=== PATIENT | female | born 2000 | race Caucasian/White ===

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

== ENCOUNTER 2023-01-08 15:30 | Outpatient (RCR) | payer OTHER, SELFPAY ==
--- NOTE | 2022-11-29 08:00 | HP.PTEVAL ---
Patient's Visit Information ELIAS MCDONALD is a 21 year old F referred to Physical Therapy by Dr. Rashi Steward MD with a diagnosis of L chrondromalicia of patella. Date of Evaluation: 11/29/22 Physical Therapist: Donny Keene, PT, ATC - Visit Plan Frequency: 2x /Week Duration: 4 Weeks Plan: L knee stretching and strengthening, core stab exercises, bike, and HEP - Subjective Pt reports chronic L knee pain for several years. Pt notes she has had xrays and an MRI recently which revealed degenerative changes to the fat pad under her L patella. Pt reports she has severe pain when trying to squat. Pt also notes pain with walking and with stair negotiation. Pt reports she has stairs at home that she negotiates daily and has to ascend/descend one step at a time. Pt reports L knee with lock up on her and give out on her on occasion. No L LE tingling or numbness at this time. Pt reports sleep difficulty at this time secondary to pain. Pt denies any surgical Hx of L knee. Pt does note she had surgery on her L ankle in high school, and believes that is how her L knee pain may have started. 7/10 pain at rest, 10/10 pain at worst - Pain L knee pain Pain Intensity (Out of 10): 7 Pain Intensity Range: 10 - Objective Neuro: B LE sensation is WNL to light touch. B achilles reflex= 2/3. Palpation: Pt is very sore throughout L knee. Obvious Bakers cyst in posterior L knee. Mild crepitus with AROM. ROM: R knee 0- 120; L knee 0-5-105 degrees. MMT: R knee flex= 39, ext= 47 #F; L knee flex= 12, ext= 21 #F. Special testing: Pos 90/90 test (45 degree lag), pos IT band tightness, pos apley compression, Pos McMurrays test - Balance/Special Test Scores Lower Extremity Functional Score: 32 - Goals Goal 1:: Decrease L knee pain x 50% to aid with sleep Goal Time Frame: 4-6 Weeks Goal 2:: Increase L knee strength x 5-10 #F to aid with stair negotiation Goal Time Frame: 4-6 Weeks Goal 3:: Increase L knee ROM x 20 degrees to aid with squatting activity Goal Time Frame: 4-6 Weeks Goal 4:: I with HEP Goal Time Frame: 4-6 Weeks - Rehabilitation Potential Physical Therapy Diagnosis: Pt has L knee pain, weakness, and limited ROM secondary to chondromalacia of L patella Rehabilitation Potential: Good - Anticipated Interventions Patient/Client Instruction: Educate patient on: Condition, Plan of Care For the Purpose of:: To improve self management Therapeutic Exercise to Include: Strength training, Endurance training, Flexibilty training, Dynamic Lumbar Stabilization For the Purpose of:: To decrease pain, To increase ROM, To improve muscle performance and motor function Cryotherapy (ice pack, ice massage): Yes For the Purpose of:: To decrease pain Thank you for the opportunity to evaluate your patient. For Medicare and Medicare HMO plans, please review the plan of care and approve it. It will need to be FAXED BACK to us at [phone] for Medicare purposes. For Medicare only, by signing this I certify the plan of care. Please let me know if there are questions or concerns regarding this plan of care. Physician Signature: Date:
--- NOTE | 2023-01-08 16:04 | HP.PTREVAL ---
Dr. Rashi Steward MD, It has been my pleasure to treat ELIAS MCDONALD over the last 7 visits for L chrondromalicia of patella. Please see the progress note below for an update on the physical therapy plan of care! Subjective: I dont have any pain today Objective/Function: L knee pain ranges from 0-8/10. L knee MMT: flex= 40, ext= 29 #F. L knee ROM: 0-5-125 degrees Plan Plan: Recheck or discharge in one month Balance/Gait/Functional tests - Balance/Special Test Scores Lower Extremity Functional Score: 64 Goals Goal 1:: Decrease L knee pain x 50% to aid with sleep Goal Time Frame: 4-6 Weeks Goal Progress: Progressing Goal 2:: Increase L knee strength x 5-10 #F to aid with stair negotiation Goal Time Frame: 4-6 Weeks Goal Progress: Progressing Goal 3:: Increase L knee ROM x 20 degrees to aid with squatting activity Goal Time Frame: 4-6 Weeks Goal Progress: Progressing Goal 4:: I with HEP Goal Time Frame: 4-6 Weeks Goal Progress: Progressing Anticipated Interventions Patient/Client Instruction: Educate patient on: Condition, Plan of Care For the Purpose of:: To improve self management Therapeutic Exercise to Include: Strength training, Endurance training, Flexibilty training, Dynamic Lumbar Stabilization For the Purpose of:: To decrease pain, To increase ROM, To improve muscle performance and motor function Cryotherapy (ice pack, ice massage): Yes For the Purpose of:: To decrease pain Please do not hesitate to contact me at [phone] by phone or if you have questions or concerns regarding this new plan of care! Sincerely, Donny Keene, PT, ATC
--- NOTE | 2023-03-19 08:46 | HP.PT.NRP ---
Patient Information Patient Information: ELIAS MCDONALD was seen in my office for initial evaluation on 11/29/22. The following Plan of Care was established for this patient: POC Established Initial Frequency: 2x /Week Initial Duration: 4 Weeks Anticipated Interventions Patient/Client Instruction: Educate patient on: Condition and Plan of Care For the Purpose of:: To improve self management Therapeutic Exercise to Include: Strength training, Endurance training, Flexibilty training and Dynamic Lumbar Stabilization For the Purpose of:: To decrease pain, To increase ROM and To improve muscle performance and motor function Cryotherapy (ice pack, ice massage): Yes For the Purpose of:: To decrease pain Last Seen Last Seen: This patient was last seen in our office . Pertinent comments regarding their Physical therapy will appear below: Pt was treated for 7 PT visits for L knee pain through the date of 01/08/23. Pt has not returned through todays date and is discontinued at this time. At this point I will be discontinuing this patient from physical therapy. I would be happy to see this patient again in the future if found appropriate by the physician. Thank you! Donny Keene, PT, ATC Balance/Gait/Functional tests Balance/Special Test Scores Lower Extremity Functional Score: 64
== END 2023-01-08 19:00 | disposition home or self-care (01) ==
LOC: PT 15:30
PROVIDERS: PCP Family Medicine; Referring Provider Internal Medicine Gastroenterology; Visit Provider Internal Medicine Gastroenterology
DX: M22.42 Chondromalacia patellae, left knee (principal)
CPT/HCPCS: 97110; 97161; 97164

== ENCOUNTER 2023-12-17 11:04 | Day surgery (SDC) | payer OTHER, SELFPAY ==
[2023-12-17] VITALS (9 sets, daily range): BP systolic 84–129; BP diastolic 50–80; PULSE 69–106; RESP 16–18; TEMP 36.1–36.8; O2SAT 84–100; BMI 44.7
[2023-12-17] MEDS: Lactated Ringers 1,000 ML 15 ML IV (11:53)
[2023-12-17 12:03] LABS: Internal QC Validated? YES +Cl - CLEAR BKGD; Pregnancy, Serum, hCG Quali. NEGATIVE Negative
--- NOTE | 2023-12-17 12:09 | HP.PCM_ITS ---
HPI - General HPI Narrative ELIAS MCDONALD, is a 22 F who presents for left knee arthroscopy, debridement infrapatellar fat pad. no changes to h and p. left knee marked. rab post op protocol and narcotic counselling. ok to proceed. MR#: [id number] Acct: [id number] Name: ELIAS MCDONALD Rep #: [id number] : 2000 Provider: Dr. Rai Adorno MD Age/Sex: 22/F Location: [facility] [place] Status: Signed Intake Vital Signs 10/27/1907:30 12/01/2409:10 Height 5 ft 5 in 5 ft 3 in Weight: 241 lb 6 oz BMI 42.7 Intake Visit Reasons: LEFT KNEE Accompanied by: Mother Is patient in pain?: Yes Pain scale (1-10): 5 Allergies No Known Allergies Allergy (Verified 12/02/23 10:11) Medications NK 12/02/23 [History] PFSH Medical History (Updated 12/02/23 @ 10:37 by Rai Adorno MD) Impingement syndrome involving patellar fat pad of left knee Left knee pain Other spontaneous disruption of capsular ligament of left knee Retained bilateral myringotomy tubes Surgical History (Updated 12/02/23 @ 10:18 by Camille Huynh MA) History of ankle surgery History of arthroplasty of right shoulder History of tonsillectomy and adenoidectomy Hx of cholecystectomy Family History (Updated 12/02/23 @ 10:19 by Camille Huynh MA) Grandmother Cancer Maternal Heart disease Great grandfather- MaternalGrandfather Heart disease Social History (Updated 12/02/23 @ 10:19 by Camille Huynh MA) household members: family Smoking Status: Never smoker alcohol intake: never HPI LEFT KNEE Details: This documentation accurately reflects the service provided and the decisions made by me, Dr. Rai Adorno MD 12/02/23 1007. Part of today?s visit was documented by [ ], acting as scribe. ELIAS MCDONALD is a 22 year old F here today for left knee pain, slipped on a patch of ice 1.5 years ago, had an ankle fracture and surgery, knee been 'in and out' getting worse, no patellar dislocation, worse with going up stairs, grinding, knee locks up. 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 had a cortisone injection without relief and a brace and PT> Ortho Exam General General: Yes no acute distress Neurologic: Yes alert and Yes oriented x3 Psychologic: Yes reasonable and appropriate Right Knee Patella Translation: 2 Left Knee Skin/Wound: Yes CDI, No ecchymosis, No erythema and No swelling Examination: No med jt line tenderness, No Lat jt line tenderness, Yes TTP inf pole patella, Yes Crepitus, No Pain with flexion, No Jeffrey's Test, Yes TTP Patellar tendon, No TTP Tibial tubercle, No TTP Pes Anserine and No Illiotibial band tenderness Quad Atrophy: No Stability: NML: Anterior Drawer, NML: Katherin, NML: Posterior Drawer, NML: Valgus 0, NML: Valgus 30, NML: Varus 0 and NML: Varus 30 Apprehension with Lateral Translation: No Patella Translation: 2 Patellar Tilt Normal: Yes Patella Grind: Yes KNEE: nvi, normal gait, BMI 42. rom 0-120. no effusion. pain to palpate and pressure at patellar tendon, neg j sign, no instability. Supplemental Info MRI reviewed from 09/05/2022. This is from [facility]. I agree with radiologist assessment. The conclusion is 1. There is edema in Hoffa's fat pad. 2. Partial tear of the attachment of the medial head of the gastrocnemius of the femur. no ligamentous meniscus or cartilage damage. In addition in the body of the report did state there is a tear of the posterior capsule. xr 4 views L knee - nil acute, joint spaces maintained. 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 Patient has exhausted nonoperative management including injections therapy and bracing. This they also have a partial tear of the attachment of the gastrocnemius of the femur and a small Haddad's cyst these are typically treated nonoperatively but for the fat pad impingement syndrome could consider doing a knee arthroscopy debridement of the Hoffa fat pad as well as considering concomitant denervation using electrocautery at the inferior pole of the patella during the same operation. This may help for the anterior knee pain would be unlikely to help with a posteriorly based knee pain but may offer the patient some relief. Discussed the pros and cons risks and benefits of this. Patient understands does want to go ahead with the surgery would be likely 2 weeks on crutches and 6 weeks before making a full recovery. They understand wish to proceed signed the consent form for surgery in the form of left knee arthroscopy, debridement infrapatellar fat pad. Despite not being on oral contraceptive pills and a non- smoker would still the likely plan to put the patient on postoperative VTE prophylaxis in the form of aspirin 81 mg twice daily d/t bmi (which also increases surgical risk and difficulty). Pros and cons risks and benefits were discussed with the patient including but not limited to infection, pain, stiffness, bleeding, damage to surrounding structures, neurovascular injury, recurrence or retear, failure or wear of hardware or fixation, instability, fracture, deep vein thrombosis and pulmonary embolism, anesthetic risks, , patient dissatisfaction, need for further surgery and other risks. Patient understood and wished to proceed with surgery, and signed the informed consent documentation. 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 Injury of head and neck Left knee pain Non-smoker Other spontaneous disruption of capsular ligament of left knee Retained bilateral myringotomy tubes Wears contact lenses Wears glasses Home Medications albuterol sulfate 90 mcg/actuation breath activated powder inhaler 1 inh inhalation Q6H SPORTS R/T ASTHMA 12/08/23 [History Last Taken Unknown] Allergy/AdvReac Type Severity Reaction Status Date / Time No Known Allergies Allergy Verified 12/17/23 11:27 Family History (Updated 12/02/23 @ 10:19 by Camille Huynh MA) Grandmother Cancer Maternal Heart disease Great grandfather- Maternal Grandfather Heart disease Surgical History (Updated 12/02/23 @ 10:18 by Camille Huynh MA) History of ankle surgery History of arthroplasty of right shoulder History of tonsillectomy and adenoidectomy Hx of cholecystectomy Social History (Updated 12/02/23 @ 10:19 by Camille Huynh MA) household members: family Smoking Status: Never smoker alcohol intake: never Vital Signs Vital Signs Vital Signs: 12/17/23 11:28 12/17/23 11:28 Temperature 98.2 F Temperature Source Temporal Pulse Rate 69 Respiratory Rate 16 Respiratory Pattern Normal Blood Pressure 129/80 H Blood Pressure Mean 96 Blood Pressure Source Monitor Blood Pressure Position Semi-Fowlers Blood Pressure Location Left Arm Pulse Ox 100 Oxygen Delivery Method Room Air Weight Weight: 244 lb 11.41 oz Body Mass Index (BMI) 44.7 Results Lab / Micro Data Labs: Laboratory Results - last 24 hr 12/17/23 11:40: Serum , Qual NEGATIVE
[2023-12-17] MEDS: Cefazolin 2 GM in 0.9% Normal Saline (100mL Bag) 100 ML IV (12:37)
[2023-12-17] MEDS: Epinephrine (1 mg/ml) 1 MG/ML VIAL (13:00)
[2023-12-17] MEDS: Bupivacaine 0.25% 30 ML Vial (13:20)
--- NOTE | 2023-12-17 13:32 | PCM.OPRPT ---
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 Placed supine on the table. 2 g IV Ancef administered prior to the start of the procedure. General anesthesia induced. All bony prominences padded. SCD on the nonoperative leg. Left thigh appropriately padded tourniquet applied. Stress positioner to the patient's left side. Lower extremity prepped and draped in the usual sterile fashion allowing over 3 minutes drying time prior to draping. Preoperative timeout performed confirm the site patient the surgery. Began by elevating the limb inflated the tourniquet to 250 mmHg. Made standard anterolateral and anteromedial arthroscopy portals. Did a full diagnostic arthroscopy. Some mild grade 1 fraying undersurface of the patella gently debrided this. Medial lateral gutters entered no loose bodies appeared normal. Trochlear cartilage as well as cartilage on the rest the patella was normal. Patella was centered. Medial lateral compartments were normal normal medial and lateral meniscus as well as the cartilage in both compartments were normal. I debrided and remove the ligamentum mucosum. ACL and PCL appeared normal and stable to probing. There was quite a bit of redundant prepatellar fat pad. I debrided this using combination of a shaving instrument and electrocautery. I controlled bleeding using that device. I also used the electrocautery to denervated around the inferior pole of patella. Final arthroscopy pictures were taken throughout the case and saved onto the system before and after the debridement. There is also a medial sided plica that I removed and debrided as well. Case terminated. Tourniquet let down. 20 cc of quarter percent bupivacaine in and around the soft tissues around the portal sites as well as at the prepatellar area. Skin cleaned with wet dry dressing followed application of Steri-Strips Adaptic 4 x 4 gauze ABD dressing and loosely wrapped Yadiel bandage. Patient woken up from a general anesthetic transferred off the operating table and taken postanesthetic care unit in stable addition. Plan for the patient weightbearing as tolerated with crutches for the first 2 weeks range of motion as tolerated and follow-up in the office in 2 [address] [place]. cpt 47500? Complications none Admit VTE Documentation VTE Present on Admission: No VTE Mechan Device Prophylaxis: SCD's VTE Pharm Prophylaxis ordered?: No Reason prophylaxis not ordered:: Treatment Not Indicated
--- NOTE | 2023-12-17 13:39 | DCINST_ITS ---
Discharge Instructions Diet Discharge Diet: No restrictions Activity Discharge Activity: Return to Normal Activity and Use Crutches Weight Bearing Status: Weight bearing as tolerated Keep extremity elevated above heart level: Operative Extremity Dressing / Incision Call your doctor if your incision/area has: Continuous Slow Oozing, Sudden Increased Bleeding, Increased Pain/ Swelling, Increased Redness, Foul Smelling Discharge and Swelling at the incision site Change Dressing in: 1 day Cleanse incision/area with: Do not get Incision Wet Follow Up Care Please Follow Up With: Rai Adorno MD When: 1-2 days or next week Test Results: Test results from this visit will be discussed in further detail at your follow- up appointment, if applicable. Discharge Plan Admission Attending Provider: Rai Adorno Primary Care Provider: Jasper Gutiérrez Discharge Orders/Prescriptions Prescriptions: New oxycodone-acetaminophen [Endocet] 5-325 mg tablet 1 tab PO Q6H MDD 6 5 Days Qty: 20 0RF No Action albuterol sulfate 90 mcg/actuation aerosol powdr breath activated 1 inh inhalation Q6H Referrals / Follow Up: Jasper Gutiérrez MD [Primary Care Provider] - Rai Adorno MD [Med Staff - Active Staff] - Disposition Disposition (needs filled in before D/C Order can be placed): Home, Self Care
== END 2023-12-17 15:18 | disposition home or self-care (01) ==
LOC: SDC 11:09 → AC 11:10
PROVIDERS: Anesthesiology; PCP Family Medicine; Referring Provider Orthopaedic Surgery Sports Medicine; Visit Provider Orthopaedic Surgery Sports Medicine
PROC: (CPT 29870; principal; 2023-12-17 12:30)
DX: M25.862 Other specified joint disorders, left knee (principal); M25.562 Pain in left knee; Z90.49 Acquired absence of other specified parts of digestive tract; M23.672 Other spontaneous disruption of capsular ligament of left knee; Z96.22 Myringotomy tube(s) status; Z96.611 Presence of right artificial shoulder joint; J45.909 Unspecified asthma, uncomplicated
CPT/HCPCS: 29875; 01400; 84703; J7120; J2405

== ENCOUNTER 2024-11-21 16:26 | Emergency (ER) | payer OTHER, BC, SELFPAY ==
[2024-11-21 16:27] VITALS: BP 152/89; PULSE 98; RESP 16; TEMP 36.7; O2SAT 100; BMI 41.1
--- NOTE | 2024-11-21 16:55 | RAD_ITS ---
PROCEDURE: Right shoulder radiographs REASON FOR EXAM: Pain, injury TECHNIQUE: Four views of the right shoulder COMPARISON: None FINDINGS: See impression RAD/Shoulder min 2 Views IMPRESSION: Negative for acute fracture or dislocation. Small cyst in the humeral head whi ch may relate to prior tenodesis. Please correlate. No significant arthropathy. Reading Location: [facility]
--- NOTE | 2024-11-21 17:01 | EDS_ITS ---
HPI History of Present Illness HPI Narrative: 23-year-old female [id number] prior surgery for biceps tendon tear. 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 Pain is under posterior right shoulder. Denies any fall or injury. This is Worker's Comp. This did happen today around 1:45 PM. Chief Complaint: Upper Extremity Injury Informant: patient Occured/Mechanism Mechanism/Context: Yes injury Onset/Context/Timing Onset: Today and Hours Context: Sudden Onset Timing: Continuous Quality of Pain: Aching Current Severity: Mild Maximum Severity: Moderate Associated Symptoms Associated Symptoms: Negative for Parasthesia, Weakness or Loss of Funtion Narrative Narrative: 23-year-old female [id number]. 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 Prior history of biceps tendon tear. This feels different. Prior similar symptoms: No Recent Illness/Hospitalization: No PFSH PFSH Medical History Physical exam, pre-employment Wears contact lenses Wears glasses Injury of head and neck Non-smoker Asthma History of edema Other spontaneous disruption of capsular ligament of left knee Impingement syndrome involving patellar fat pad of left knee Left knee pain Retained bilateral myringotomy tubes Home Medications ?Medication ?Instructions ?Recorded ?Last Taken ?Type albuterol sulfate 90 mcg/actuation 1 inh inhalation Q6 H SPORTS R/T 12/08/23 Unknown History breath activated powder inhaler ASTHMA Allergy/AdvReac Type Severity Reaction Status Date / Time No Known Allergies Allergy Verified 11/21/24 16:29 Family History Grandmother Cancer Maternal Heart disease Great grandfather- Maternal Grandfather Heart disease Surgical History History of tonsillectomy and adenoidectomy Hx of cholecystectomy History of ankle surgery History of arthroplasty of right shoulder Social History household members: family Smoking Status: Never smoker alcohol intake: never ROS ROS ED ROS Narrative Denies recent illness. Constitutional Constitutional ED: Denies chills or fever(s) Eyes Eyes: Denies blurry vision ENT ENT ED: Denies ear pain Cardiovascular Cardiovascular: Denies chest pain or palpitations Respiratory/Chest Respiratory/Chest: Denies cough or dyspnea Gastrointestinal Gastrointestinal: Denies abdominal pain Genitourinary Genitourinary ED: Denies dysuria or hematuria Musculoskeletal Musculoskeletal: Denies back pain or myalgias Integumentary Denies abscess or Abrasions Neurologic Neurologic: Denies headache(s) Psychiatric Psychiatric: Denies anxiety or depression Endocrine Endocrinology: Denies cold intolerance, heat intolerance or polydipsia Hematologic/Lymphatic Hematologic/Lymphatic: Denies easy bleeding or easy bruising Allergic/Immunologic Allergic/Immunologic ED: Denies mouth swelling, tongue swelling or urticaria EXAM Physical Exam Narrative Exam Narrative: Well-appearing 23-year-old female. Vital signs are stable afebrile. She is sitting up in bed. No family present. H EENT exam pupils round reactive light. Moist mucous membranes. Neck nontender no lymphadenopathy. Lungs clear to auscultation bilaterally. Heart regular rhythm rate about 95 no murmur. Chest wall ribs nontender. Abdomen soft nontender. Back her right posterior shoulder she has tenderness. There is no ecchymosis or bruising. She is able to do flexion extension of the right shoulder. Passively if I lift her arm over her shoulder she can hold it up. I do not think she has a rotator cuff tear. She has tenderness to palpation of the right posterior shoulder. There is no deficit. No bruising. No bony deformity. There is no dislocation. The humerus, elbow and shoulder and hand are nontender. Normal radial pulse. 5 out of 5 necktie maker strength. Normal color. Normal sensation. Exam is consistent and right shoulder muscle strain. Neurologically she is awake and alert no focal motor or sensory deficits. Const Vital Signs: 11/21/24 16:27 Temperature 98.1 F Temperature Source Temporal Pulse Rate 98 Respiratory Rate 16 Blood Pressure 152/89 H Blood Pressure Mean 110 Pulse Ox 100 Oxygen Delivery Method Room Air Positive well nourished and well developed; Negative for cachectic, contractures or unkempt General Appearance ED: well developed and NAD; Negative for unkempt, cachectic, contractures, cyanotic or diaphoretic Nutritional Appearance: Negative for cachectic HEENT Reports moist mucous membranes normocephalic and atraumatic; Negative for trauma or tenderness Eyes PERRL and EOMs intact bilaterally General Eye ED: Negative for other Neck full ROM and supple General: Negative for tenderness Lymph Lymphatic: Negative for other Chest Wall inspection of chest normal and palpation of chest normal Resp normal respiratory effort and clear to auscultation bilaterally Auscultation: Negative for rales, rhonchi, wheezes or diminished lung sounds Cardio regular rate, regular rhythm, S1 normal heart sound, S2 normal heart sound and no murmurs Rate: Negative for bradycardia Rhythm: Negative for abnormal rhythm GI non-tender, non-distended and no masses Inspection: Negative for abdominal distention Palpation: soft; Negative for tender, guarding or rebound tenderness present Back/Spine no CVA tenderness General Back: Negative for CVA tenderness Cervical Spine: Negative for cervical spine tenderness Thoracic Spine / Upper Back: Negative for thoracic spinal tenderness Lumbar Spine / Lower Back: Negative for lumbar spinal tenderness Extremity normal to inspection and full ROM Extremity Narrative: Except right posterior shoulder tenderness of soft tissue consistent with myofascial strain. No deficit. She is able to do internal/external rotation of shoulder with some discomfort. Passively lift her right arm over her shoulder and she can hold it up I do not think she has a rotator cuff tear. She has normal flexion extension of the right elbow and wrist. Normal radial pulse. 5- 5 necktie maker strength. Normal sensation. General Extremety ED: Negative for edema General Extremity: Negative for edema Neuro oriented x3, CN's II-XII intact bilaterally, moves all extremities, no focal motor deficits and no sensory deficits noted Sensorium / Orientation: alert, oriented to person, oriented to place and oriented to time; Negative for orientation impaired, lethargic or stuporous Motor Exam: strength 5/5 throughout Psych mental status grossly normal Appearance: Negative for unkempt Attitude: No agitated Mood & Affect: Negative for depressed, anxious or tearful Skin General Skin Exam: Negative for petechiae Lesions: no lesions Rashes: no rashes Trauma: no lacerations or abrasions; Negative for abrasion or laceration MDM MDM MDM Narrative Medical decision making narrative: 23-year-old female suspect right shoulder strain of the muscle. X-ray being obtained. This is Worker's Comp. She already took Tylenol prior to arrival. Repeat exam at 5:09 PM unchanged. Treated as a right shoulder muscle strain. Ice. Anti-inflammatories. Tylenol. Follow-up as needed. Radiography Diagnostic Testing: Right shoulder x-ray, 4 views, interpreted by myself shows no acute abnormality. No fracture. No dislocation. Discharge Plan Triage Chief Complaint: Upper Extremity Injury ED Provider: Charlie Culp Dx/Rx/DC Orders Clinical Impression: Muscle strain of right shoulder, Encounter related to worker's compensation claim Instructions: ED Muscle Strain, Extremity Prescriptions: No Action albuterol sulfate 90 mcg/actuation aerosol powdr breath activated 1 inh inhalation Q6H Primary Care Provider: Jasper Gutiérrez [facility] - 1 Week if not improving Jasper Gutiérrez MD [Primary Care Provider] - 1 Week if not improving Activity Restrictions/Additional Instructions: Motrin and Tylenol for pain and inflammation. Ice to your shoulder to decrease inflammation. Ice shower, warm compresses, hot bath or whirlpool to help relax the muscles. Follow-up with your primary care physician or corporate care for further evaluation if not improving. Most likely this is a strained muscle in your shoulder if is not getting better he can follow-up and have further evaluation possibly an MRI. Plain x-rays look good but those do not evaluate tendons, ligaments or cartilage. Print Language: Setswana Disposition Disposition: Home, Self Care
== END 2024-11-21 17:36 | disposition home or self-care (01) ==
PROVIDERS: Emergency Provider Emergency Medicine; PCP Family Medicine; Visit Provider Emergency Medicine
DX: S46.911A Strain of unspecified muscle, fascia and tendon at shoulder and upper arm level, right arm, initial encounter (principal); Z90.49 Acquired absence of other specified parts of digestive tract; X50.0XXA Overexertion from strenuous movement or load, initial encounter; Y93.F2 Activity, caregiving, lifting; Y99.0 Civilian activity done for income or pay
CPT/HCPCS: 73030; 99282

== ENCOUNTER 2025-01-12 16:30 | Outpatient (RCR) | payer OTHER, BC, SELFPAY ==
--- NOTE | 2024-12-17 08:29 | HP.PTEVAL ---
Patient's Visit Information Visit Information Visit Information: ELIAS MCDONALD is a 23 year old F referred to Physical Therapy by RUSTY Lopez with a diagnosis of STRAIN OF UNSPECIFIED MUSCLE TENDON AT SHOULDER. Date of Evaluation: 12/17/24 Physical Therapist: Dariusz Briones, PT, Cert MDT, OCS Visit Plan Frequency: 2-3x /Week Duration: 4 Weeks Plan: PT INTERVENTIONS RTC/SCAPULAR STRENGTHENING ,POSTURAL EX'S AND MODALITIES PRN Subjective Subjective: This 23 yo female presents to physical therapy with right shoulder pain . 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 Patient had x-rays -. [facility] ,muscle relaxer . Placed on light duty from 11/21 -12/13 Dr recommended to see Dr Castle. Return to fully duty. Pain located global shoulder anterior and posterior. Described ache. Aggravating reaching to side ,lifting OH . Alleviating factors rest ,TENS unit. Pain affects sleeping . Patient has shoulder surgery R biceps release and SAD. in HS. Patient condition affects job demands ,ADL and lifting OH . Patient goals to to regain full function of shoulder. 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 Pain Right Shoulder: Pain Intensity (Out of 10): 7 Pain Intensity Range: 10 Objective Objective: POSTURE: mild forward posture PALPATION: tender ist rib ,scalenes ,lateral superior acromioN NUERO: c/c occasional paresthesia/tingling hand AROM: shoulder flexion 160 degrees ,abduction 160 degrees ,ER 90 degrees ,IR T10 MMT: ( peak force) infraspinatus 19.2 ,subscapularis 20.2 .supraspinatus 12.9 ,deltoid 15.2 CERVICAL ROM: flexion/extension/rotation lateral flexion WNL + Sonido test Special Tests C/S Radiculapathy - Left Upper limb tension test: Negative C/S Radiculapathy - Right Upper limb tension test: Negative R Shoulder External Rotation Lag Test - RC Tear: Negative R Shoulder Supine Impingement Test - RC Tear: Negative R Shoulder Lift Off Test - Subscapular Tear: Negative R Shoulder Empty Can - SS: Negative R Shoulder Neer - Impingement: Positive R Shoulder Tang Sav - Impingement: Positive R Shoulder Biceps Load Test - Labrum: Negative R Shoulder Sulcus Sign - Inferior Laxity: Negative R Shoulder Apprehension/Relocaton - SLAP: Negative R Shoulder AC Resisted - AC: Negative R Shoulder Shrug Sign - OA/Adhesive Capsulitis: Negative Balance/Special Test Scores Quick DASH Score: 36.3625 Goals Goal 1:: Patient to be I with HEP for shoulder Goal Time Frame: 4-6 Weeks Goal 2:: Patient to demonstrate 75% improvement with right shoulder with OH activities and job demands Goal Time Frame: 4-6 Weeks Goal 3:: Patient to improve peak force RTC by 5-10 # to improve function and job demands Goal Time Frame: 4-6 Weeks Goal 4:: Patient to improve quick dash by 5 points to improve QOL and function Goal Time Frame: 4-6 Weeks Rehabilitation Potential Physical Therapy Diagnosis: This patient strain 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 at 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 with pain with OH activities and weakness RTC thus benefit from skilled PT Rehabilitation Potential: Good Anticipated Interventions Patient/Client Instruction: Educate patient on: Condition and Plan of Care For the Purpose of:: To decrease pain, To increase ROM, To improve muscle performance and motor function, To improve ability to perform ADL's, To increase tolerance to activity/condition/position, To improve ability of physical actions for home/community/work/leisure, To improve health of tissue, To decrease soft tissue restriction, To increase flexibility/ROM and To improve tolerance to ADL's Therapeutic Exercise to Include: Strength training, Body mechanics, Postural training, Flexibilty training and Scapular Strength/Stabilization Comment: RTC For the Purpose of:: To decrease pain, To increase ROM, To improve muscle performance and motor function, To improve ability to perform ADL's, To increase tolerance to activity/condition/position, To improve ability of physical actions for home/community/work/leisure, To improve health of tissue, To decrease soft tissue restriction and To increase flexibility/ROM TENS: Yes IF ES: Yes Thermo therapy (hot pack): Yes Ultrasound (thermal/non thermal): Yes For the Purpose of:: To decrease pain, To increase ROM, To improve nutrient delivery to tissue, To increase oxygenation perfusion, To improve health of tissue and To decrease soft tissue restriction Text: Thank you for the opportunity to evaluate your patient. For Medicare and Medicare HMO plans, please review the plan of care and approve it. It will need to be FAXED BACK to us at [phone] for Medicare purposes. For Medicare only, by signing this I certify the plan of care. Please let me know if there are questions or concerns regarding this plan of care. Physician Signature: Date:
--- NOTE | 2025-01-12 16:57 | HP.PTDCSUM ---
Discharge Summary D/C summary: It has been my pleasure to treat ELIAS MCDONALD referred by RUSTY Lopez, with the diagnosis of STRAIN OF UNSPECIFIED MUSCLE TENDON AT R SHOULDER for a total of 9 visit(s). Discharge Date: Please see the following information for a summary of their discharge status. Subjective Subjective: Occasionally numbness Pain is better and stronger ,able to do job comfortable Pain Right Shoulder: Pain Intensity (Out of 10): 3 Overall Improvement % Improvement: 90 Objective Objective/Function: POSTURE: mild forward posture PALPATION: tender ist rib ,scalenes ,lateral superior acromioN NUERO: c/c occasional paresthesia/tingling hand AROM: shoulder flexion 160 degrees ,abduction 160 degrees ,ER 90 degrees ,IR T10 MMT: ( peak force) infraspinatus 27.0 ,subscapularis 30.2 .supraspinatus 34.9 ,deltoid 31.8 CERVICAL ROM: flexion/extension/rotation lateral flexion WNL Goals Goal 1:: Patient to be I with HEP for shoulder Goal Progress: Goal Met Goal 2:: Patient to demonstrate 75% improvement with right shoulder with OH activities and job demands Goal Progress: Goal Met Goal 3:: Patient to improve peak force RTC by 5-10 # to improve function and job demands Goal Progress: Goal Met Goal 4:: Patient to improve quick dash by 5 points to improve QOL and function Goal Progress: Goal Met Plan Plan: D/C TO HEP D/C Information d/c sentence: If there are questions or concerns regarding this patient's physical therapy, please feel free to call me at [phone]. Thank you for the referral of this patient. Sincerely, Dariusz Briones, PT, Cert MDT, OCS Balance/Gait/Functional tests Balance/Special Test Scores Quick DASH Score: 36.3625 Improvement % Improvement: 90
== END 2025-01-12 19:00 | disposition home or self-care (01) ==
LOC: PT 16:30
PROVIDERS: PCP Family Medicine; Referring Provider Physician Assistant; Visit Provider Physician Assistant
DX: S46.911D Strain of unspecified muscle, fascia and tendon at shoulder and upper arm level, right arm, subsequent encounter (principal)
CPT/HCPCS: 97110; 97140; 97162; 97530